=== PATIENT | male | born 1935 | race Caucasian/White ===

== ENCOUNTER 2023-01-07 09:10 | Outpatient (REF) | payer MEDICARE, MEDICAID, SELFPAY ==
[2023-01-07 13:04] LABS: Creatinine Urine 117.29 mg/dL; Microalbum/Creatinine Ratio Ur 13.6 ug/mg cr
[2023-01-07 13:11] LABS: Anion Gap 16 (12-20); Blood Urea Nitrogen 22 mg/dL (9-16); Calcium 9.6 mg/dL (8.4-10.2); Carbon Dioxide 26 mmol/L (22-29); Chloride 105 mmol/L (96-108); Estimated Glomerular Filt Rate 55; Glucose Random 157 mg/dL (60-115); Potassium 3.8 mmol/L (3.3-5.1); Sodium 143 mmol/L (135-145); Vitamin D 25-OH Total 35.4 ng/mL (>30)
[2023-01-07 13:17] LABS: Cholesterol 104 mg/dL; HDL Cholesterol 39 mg/dL; LDL Cholesterol Calculated 48 mg/dl; Triglycerides 85 mg/dL
[2023-01-07 18:10] LABS: Reflex LDLD? No
== END 2023-01-07 09:11 | disposition home or self-care (01) ==
LOC: HO.HHCL 09:10
PROVIDERS: Visit Provider Internal Medicine
DX: E11.65 Type 2 diabetes mellitus with hyperglycemia (principal); Z79.899 Other long term (current) drug therapy
CPT/HCPCS: 36415; 80048; 80061; 82043; 82306

== ENCOUNTER 2024-06-03 16:40 | Emergency (ER) | payer MEDICARE, MEDICAID, SELFPAY ==
--- NOTE | ~2024-06-03 | XR_ITS ---
CLINICAL HISTORY: SOB 1 view chest x-ray Comparison: None Findings: No consolidation or effusion. Heart size is normal. No acute fracture. IMPRESSION: 1. No acute findings. This document has been electronically signed by: Consuelo Harden MD on 06/03/2024 17:57:19
[2024-06-03 17:34] VITALS: BP 153/68; PULSE 79; RESP 20; TEMP 36.4; O2SAT 90; BMI 25.5
[2024-06-03 18:07] LABS: MANUAL DIFF FLAG NO
[2024-06-03 18:08] LABS: Basophils Percent Auto 0.4 % (0-2); Eosinophils Absolute Auto 0.1 X10*3/uL (0.0-0.4); Eosinophils Percent Auto 1.2 % (0-4); Hematocrit 46.1 % (42.0-52.0); Imm Gran Abs Auto 0.12 X10*3/uL (0.00-0.03); Imm Gran Pct Auto 1.1 % (0.0-0.4); Lymphocytes Percent Auto 9.2 % (20-40); Mean Corpuscular HGB Conc 34.7 g/dl (31.0-36.0); Mean Corpuscular Hemoglobin 32.1 pg (27.0-33.0); Mean Corpuscular Volume 92.4 fL (80.0-98.0); Mean Platelet Volume 10.4 fL (9.4-12.4); Monocytes Absolute Auto 0.4 X10*3/uL (0.1-1.2); Monocytes Percent Auto 3.8 % (2-11); Neutrophils Absolute Auto 9.5 x10*3/uL (2.0-8.3); Neutrophils Percent Auto 84.3 % (45-73); Platelet Count 232 X10*3/uL (160-400); Red Blood Count 4.99 X10*6/uL (4.60-5.80); White Blood Count 11.3 X10*3/uL (4.8-10.8)
[2024-06-03 18:37] LABS: Alanine Aminotransferase 26 U/L (0-40); Albumin Level 4.3 g/dL (3.5-5.0); Alkaline Phosphatase 64 U/L (39-117); Anion Gap 16 (12-20); Aspartate Amino Transferase 25 U/L (5-37); Bilirubin Total 0.5 mg/dL (0.0-1.0); Blood Urea Nitrogen 36 mg/dL (9-16); Calcium 9.9 mg/dL (8.4-10.2); Carbon Dioxide 28 mmol/L (22-29); Chloride 102 mmol/L (96-108); Estimated Glomerular Filt Rate 41; Glucose Random 240 mg/dL (60-115); Potassium 4.4 mmol/L (3.3-5.1); Sodium 142 mmol/L (135-145)
[2024-06-03 18:46] LABS: Influenza A PCR NEGATIVE (Negative); Influenza B PCR NEGATIVE (Negative); Resp Syncy Virus RNA Qual PCR POSITIVE (Negative); SARS COV2 PCR INHOUSE NEGATIVE (Negative)
[2024-06-03 20:11] VITALS: BP 141/83; PULSE 77; RESP 16; TEMP 37.3; O2SAT 95
[2024-06-03 21:51] VITALS: BP 103/77; PULSE 75; RESP 16; TEMP 36.7; O2SAT 98
== END 2024-06-03 22:57 | disposition left against medical advice (07) ==
PROVIDERS: Emergency Medicine; Emergency Provider Emergency Medicine; PCP Internal Medicine
DX: R05.9 Cough, unspecified (principal); R06.02 Shortness of breath; J44.9 Chronic obstructive pulmonary disease, unspecified; Z79.899 Other long term (current) drug therapy; Z03.818 Encounter for observation for suspected exposure to other biological agents ruled out
CPT/HCPCS: 0241U; 71045; 80053; 85025; 99281; 99283

== ENCOUNTER → 2024-06-03 17:48 | Outpatient (BNV) | payer MEDICARE, MEDICAID, SELFPAY | PROVIDERS: PCP Internal Medicine; Visit Provider Radiology Diagnostic Radiology | DX: R06.02 Shortness of breath (principal) | CPT/HCPCS: 71045 ==

== ENCOUNTER 2024-06-04 09:12 | Emergency (ER) | payer MEDICARE, MEDICAID, SELFPAY ==
--- NOTE | ~2024-06-04 | XR_ITS ---
EXAMINATION: XR CHEST CLINICAL INFORMATION: cough COMPARISON: None available. TECHNIQUE: Frontal view of the chest was obtained. FINDINGS: The lungs are well-expanded and clear. The heart size and pulmonary vascularity is normal. No gross bony abnormality seen. XR/XR chest 1V IMPRESSION: Unremarkable chest exam Electronically signed by: Junito Gilmore MD 06/04/2024 10:05 AM [facility] [place]
[2024-06-04 09:36] VITALS: BP 138/67; PULSE 71; RESP 16; TEMP 36.1; O2SAT 95; BMI 25.0
--- NOTE | 2024-06-04 09:49 | ECG_ITS ---
Test Reason : RSV Blood Pressure : */* mmHG Vent. Rate : 70 BPM Atrial Rate : 70 BPM P-R Int : 178 ms QRS Dur : 138 ms QT Int : 434 ms P-R-T Axes : 3 119 1 degrees QTcB Int : 468 ms Normal sinus rhythm Right bundle branch block Left posterior fascicular block Bifascicular block Abnormal ECG When compared with ECG of 29-Oct-2013 11:21, (RBBB and left posterior fascicular block) is now Present Criteria for Inferior infarct are no longer Present Referred By: Daysi Curran Electronically Signed By: RIA MIRANDA
[2024-06-04 10:04] VITALS: BP 135/71; PULSE 74; RESP 18; O2SAT 96; O2SAT 97
[2024-06-04 10:09] LABS: MANUAL DIFF FLAG NO
[2024-06-04 10:11] LABS: Basophils Percent Auto 0.2 % (0-2); Eosinophils Absolute Auto 0.1 X10*3/uL (0.0-0.4); Eosinophils Percent Auto 0.7 % (0-4); Hematocrit 43.2 % (42.0-52.0); Hemoglobin 15.2 g/dl (14.0-18.0); Imm Gran Abs Auto 0.06 X10*3/uL (0.00-0.03); Imm Gran Pct Auto 0.6 % (0.0-0.4); Lymphocytes Absolute Auto 1.6 X10*3/uL (1.2-4.9); Lymphocytes Percent Auto 15.7 % (20-40); Mean Corpuscular HGB Conc 35.2 g/dl (31.0-36.0); Mean Corpuscular Hemoglobin 32.3 pg (27.0-33.0); Mean Corpuscular Volume 91.7 fL (80.0-98.0); Mean Platelet Volume 10.4 fL (9.4-12.4); Monocytes Absolute Auto 0.9 X10*3/uL (0.1-1.2); Monocytes Percent Auto 8.6 % (2-11); Neutrophils Absolute Auto 7.5 x10*3/uL (2.0-8.3); Neutrophils Percent Auto 74.2 % (45-73); Platelet Count 263 X10*3/uL (160-400); Red Blood Count 4.71 X10*6/uL (4.60-5.80); Red Cell Distribution Width 12.9 % (11.0-16.0); White Blood Count 10.1 X10*3/uL (4.8-10.8)
[2024-06-04 10:34] LABS: B Type Natriuretic Peptide 27 pg/mL (<100)
[2024-06-04 10:35] LABS: Alanine Aminotransferase 27 U/L (0-40); Albumin Level 4.3 g/dL (3.5-5.0); Anion Gap 18 (12-20); Aspartate Amino Transferase 21 U/L (5-37); Bilirubin Direct 0.3 mg/dL (0.0-0.5); Bilirubin Total 0.7 mg/dL (0.0-1.0); Blood Urea Nitrogen 41 mg/dL (9-16); Carbon Dioxide 25 mmol/L (22-29); Chloride 101 mmol/L (96-108); Creatinine Clr Calc Pharmacy 34.4; Estimated Glomerular Filt Rate 43; Glucose Random 205 mg/dL (60-115); Potassium 3.9 mmol/L (3.3-5.1); Sodium 140 mmol/L (135-145); Total Protein 7.6 g/dL (6.5-8.0)
--- NOTE | 2024-06-04 10:39 | ED.GENADULT ---
HPI - General Adult General Chief complaint: Upper Respiratory Symptoms Stated complaint: cough wheezing follow up Time Seen by Provider: 06/04/24 10:38 History of Present Illness ED Provider: Denisse PERDUE narrative: The patient is an 88-year-old male with a history of asthma who says he has felt unwell for about 5 or 6 days. He came to the Emergency room yesterday had some testing done but there was an extremely long wait and he left without being seen. The testing that he had done yesterday showed that he was positive for RSV and also that his BUN and creatinine were somewhat higher than his baseline. He was called back today to return to the emergency room. Today he says he feels slightly better than yesterday. He has had a cough productive of some white sputum. He has had a sense of some congestion in his chest. No definite fevers. No vomiting. Related Data Previous Rx's ?Medication ?Instructions ?Recorded azithromycin 250 mg tablet 250 mg PO DAILY 4 days #4 tabs 06/04/24 prednisone 20 mg tablet 20 mg PO DAILY #12 tabs 06/04/24 Allergies Allergy/AdvReac Type Severity Reaction Status Date / Time No Known Allergies Allergy Mild NONE Verified 06/04/24 09:39 Review of Systems Review of Systems: Yes all other systems are reviewed and are negative [facility] Social History Social History Smoked in Last 30 Days: No Use of substances other than those prescribed or required for medical reasons: No Advance Directives: No Advance Directives Information Provided: Yes Physical Exam ED Vital Signs: Vital Signs - 24 hr 06/04/24 09:36 06/04/24 10:04 06/04/24 10:04 Temperature 97.0 F Pulse Rate 71 74 Respiratory Rate 16 18 Blood Pressure 138/67 135/71 Pulse Oximetry 95 97 96 Oxygen Delivery Method Room Air Room Air Room Air 06/04/24 11:50 06/04/24 11:56 06/04/24 13:23 Temperature 98.6 F Pulse Rate 74 70 68 Respiratory Rate 18 17 18 Blood Pressure 141/77 H 138/70 Pulse Oximetry 96 97 Oxygen Delivery Method Room Air Room Air BMI result Body Mass Index 25.0 Const Other: The patient is a very pleasant 88-year-old man. He looks as if he is ordinarily a fairly vigorous 88-year-old. He looks mildly unwell but not acutely ill. He does not seem in respiratory distress or in pain HENMT Other: Face is symmetrical. Mucous membranes moist. Eyes Other: Pupils are round equal, conjunctivae are clear, extraocular movements intact Neck Other: No JVD. Moving his neck easily. Resp Other: No increased work of breathing. Some wheezing bilaterally Cardio Rate: regular rate Rhythm: regular rhythm Heart sounds: S1 normal heart sound present and S2 normal heart sound present GI Other: Abdomen is soft and nontender Skin Other: Skin is dry and unremarkable Neuro Other: The patient is awake and alert with a normal mental status. Cranial nerves are grossly intact. He moves his extremities normally and appropriately Extrem Other: No peripheral edema Medications Administered Discontinued Medications Generic Name Dose Route Start Last Admin Trade Name Freq PRN Reason Stop Dose Admin Albuterol/Ipratropium 3 ml 06/04/24 11:43 06/04/24 11:56 Albuterol/Iprat 2.5/0.5mg 3 Ml Ampul.Neb INHALE 06/04/24 11:44 3 ml ONCE ONE Administration Azithromycin 500 mg 06/04/24 11:43 06/04/24 12:03 Azithromycin 500 Mg Tablet PO 06/04/24 11:44 500 mg ONCE ONE Administration Azithromycin 500 mg 06/04/24 13:07 06/04/24 13:13 Azithromycin 500 Mg Tablet PO 06/04/24 13:08 Not Given ONCE ONE Sodium Chloride 1,000 mls @ 999 mls/hr 06/04/24 11:45 06/04/24 13:12 Ns IV 06/04/24 12:45 Infused .Q1H1M ALEXANDER Infusion Prednisone 60 mg 06/04/24 11:43 06/04/24 12:03 Prednisone 20 Mg Tablet PO 06/04/24 11:44 60 mg ONCE ONE Administration Medical Decision Making Medical Decision Making [facility] Narrative: The patient is a very pleasant 88-year-old who was sick with respiratory symptoms. He has been in the emergency room yesterday but left without being seen. At that visit his RSV had come back positive in his BUN and creatinine were somewhat higher than previously. Today the patient looks mildly ill but not severely ill. He has some wheezing bilaterally. He does not seem toxic or septic in any way. The patient was given IV fluids to address his rise in BUN and creatinine. He will be placed on a course of prednisone and azithromycin for what I think is an acute asthma exacerbation. The patient would like to be discharged. He was feeling well enough to be discharged. He is encouraged to continue prednisone and azithromycin. He has inhalers at home. Lab Data 06/04/24 10:03 06/04/24 10:03 Labs: Lab Results 06/04/24 Range/Units 10:03 WBC 10.1 (4.8-10.8) X10*3/uL RBC 4.71 (4.60-5.80) X10*6/uL Hgb 15.2 (14.0-18.0) g/dl Hct 43.2 (42.0-52.0) % MCV 91.7 (80.0-98.0) fL MCH 32.3 (27.0-33.0) pg MCHC 35.2 (31.0-36.0) g/dl RDW 12.9 (11.0-16.0) % Plt Count 263 (160-400) X10*3/uL MPV 10.4 (9.4-12.4) fL Immature Gran % (Auto) 0.6 H (0.0-0.4) % Neut % (Auto) 74.2 H (45-73) % Lymph % (Auto) 15.7 L (20-40) % [place] % (Auto) 8.6 (2-11) % Eos % (Auto) 0.7 (0-4) % Baso % (Auto) 0.2 (0-2) % Lymph # (Auto) 1.6 (1.2-4.9) X10*3/uL [place] # (Auto) 0.9 (0.1-1.2) X10*3/uL Eos # (Auto) 0.1 (0.0-0.4) X10*3/uL Baso # (Auto) 0.0 (0.0-0.2) X10*3/uL Abs Immat Gran (auto) 0.06 H (0.00-0.03) X10*3/uL Absolute Neuts (auto) 7.5 (2.0-8.3) x10*3/uL Absolute Nucleated RBC 0.000 (0.0-0.012) X10*3/uL Nucleated RBC % (auto) 0.0 (0.0-0.2) /100WBC Sodium 140 (135-145) mmol/L Potassium 3.9 (3.3-5.1) mmol/L Chloride 101 (96-108) mmol/L Carbon Dioxide 25 (22-29) mmol/L Anion Gap 18 (12-20) BUN 41 H (9-16) mg/dL Creatinine 1.54 H (0.5-1.4) mg/dL Estim Creat Clear Calc 34.4 Estimated GFR 43 Random Glucose 205 H (60-115) mg/dL Calcium 10.0 (8.4-10.2) mg/dL Magnesium 2.0 (1.6-2.6) mg/dL Total Bilirubin 0.7 (0.0-1.0) mg/dL Direct Bilirubin 0.3 (0.0-0.5) mg/dL AST 21 (5-37) U/L ALT 27 (0-40) U/L Alkaline Phosphatase 60 (39-117) U/L Troponin I High Sens 3.9 (<3.5-35.0) ng/L B-Natriuretic Peptide 27 (<100) pg/mL Total Protein 7.6 (6.5-8.0) g/dL Albumin 4.3 (3.5-5.0) g/dL Independent Interpretation I performed an independent interpretation of an: EKG Interpretation: Sinus rhythm at 70 beats per minute. There is a right bundle branch block and a left posterior fascicular block. Discharge Plan Discharge Clinical Impression: Respiratory syncytial virus (RSV) infection, Acute asthma exacerbation, Dehydration Patient Disposition: Home, Self-Care Additional Instructions: You seemed to have a respiratory infection caused by the virus RSV. You has been started on a course of prednisone, a steroid medication to help with your asthma. Please take this medication once a day as prescribed. You have also been started on a course of the antibiotic azithromycin. Please take this medication once a day as prescribed as well. Use your inhalers at home to help with your wheezing. Drink lot of fluids to help your dehydration. Please follow up with your regular doctor's office next week if you are able to do so. If at any point you feel significantly worse please return to the emergency department. Prescriptions: New prednisone 20 mg tablet 20 mg PO DAILY Qty: 12 0RF Rx Instructions: Take 3 tablets by mouth daily for 2 days, then take 2 tablets by mouth daily for 3 days. azithromycin 250 mg tablet 250 mg PO DAILY 4 Days Qty: 4 0RF Rx Instructions: start on day 2 of therapy Referrals: Leslie Aguilar MD [Primary Care Provider] - (RSV, asthma, dehydration) Interventions: ED Discharge Assessment Last Done: 06/04/24 13:23 Discharge Date/Time: 06/04/24 13:24 Print Language: Beninese
[2024-06-04 10:40] LABS: Troponin-I High Sensitivity 3.9 ng/L (<3.5-35.0)
[2024-06-04 11:50] VITALS: BP 141/77; PULSE 74; RESP 18; O2SAT 96
[2024-06-04 11:56] VITALS: PULSE 70; RESP 17; O2SAT 97
[2024-06-04] MEDS: Albuterol/Iprat 2.5/0.5MG 3 ML AMPUL.NEB INHALE (11:56)
[2024-06-04] MEDS: 0.9 % Sodium Chloride 1,000 ML 999 ML IV (12:02)
[2024-06-04] MEDS: Azithromycin 500 MG TABLET PO (12:03)
[2024-06-04] MEDS: predniSONE 20 MG TABLET 60 MG PO (12:03)
[2024-06-04 12:25] LABS: Alkaline Phosphatase 60 U/L (39-117)
[2024-06-04 13:23] VITALS: BP 138/70; PULSE 68; RESP 18; TEMP 37; O2SAT 97
== END 2024-06-04 13:24 | disposition home or self-care (01) ==
PROVIDERS: Emergency Medicine; Emergency Provider Emergency Medicine; PCP Internal Medicine
DX: J45.901 Unspecified asthma with (acute) exacerbation (principal); B97.4 Respiratory syncytial virus as the cause of diseases classified elsewhere; E86.0 Dehydration; I45.10 Unspecified right bundle-branch block; I44.5 Left posterior fascicular block; I45.2 Bifascicular block
CPT/HCPCS: 36415; 71045; 80048; 80076; 83735; 83880; 84484; 85025; 93005; 94640; 96360; 99284; 99285

== ENCOUNTER → 2024-06-04 09:49 | Outpatient (BNV) | payer MEDICARE, MEDICAID, SELFPAY | PROVIDERS: Emergency Provider Emergency Medicine; PCP Internal Medicine; Visit Provider Internal Medicine | DX: R94.31 Abnormal electrocardiogram [ECG] [EKG] (principal) | CPT/HCPCS: 93010 ==

== ENCOUNTER → 2024-06-04 09:50 | Outpatient (BNV) | payer MEDICARE, MEDICAID, SELFPAY | PROVIDERS: Emergency Provider Emergency Medicine; PCP Internal Medicine; Visit Provider Radiology Diagnostic Radiology | DX: R05.9 Cough, unspecified (principal) | CPT/HCPCS: 71045 ==

== ENCOUNTER 2024-11-02 16:36 | Outpatient (REF) | payer MEDICARE, MEDICAID, SELFPAY | END 2024-11-02 16:37 | disposition home or self-care (01) | LOC: HO.HHCLNP 16:36 | PROVIDERS: Visit Provider Emergency Medicine | DX: L72.3 Sebaceous cyst (principal); L08.9 Local infection of the skin and subcutaneous tissue, unspecified | CPT/HCPCS: 87070; 87205 ==